=== PATIENT | male | born 1965 | race Caucasian/White ===

== ENCOUNTER 2025-05-06 18:13 | Emergency (ER) | payer OTHER, SELFPAY ==
[2025-05-06 18:43] VITALS: BP 102/67; PULSE 70; RESP 20; TEMP 37.1; O2SAT 96
--- NOTE | 2025-05-06 19:09 | PD.EDSKIN ---
ED Skin Abcess FB-RME/HPI General Chief complaint: Skin/Abscess/Foreign Body Stated complaint: Right middle finger infection Time Seen by Provider: 05/06/25 18:15 Arrival date/time: 05/06/25 18:13 This is a case of a 59-year-old male who came in in the emergency room finger pain with swelling and redness for 4 days patient states that he noticed that there is a redness swelling and yellowish discharge coming from his right third finger patient tetanus shot is up-to-date Limitations: no limitations Related Data Previous Rx's ?Medication ?Instructions ?Recorded cephalexin 500 mg tablet 500 mg PO TID #30 tabs 05/06/25 mupirocin 2 % topical ointment 1 applic topical TID #15 grams 05/06/25 sulfamethoxazole 800 1 tab PO Q12H #20 tabs 05/06/25 mg-trimethoprim 160 mg tablet (Bactrim DS) Allergies Allergy/AdvReac Type Severity Reaction Status Date / Time No Known Drug Allergies Allergy Verified 05/06/25 18:16 Review of Systems Review of Systems Systems Reviewed: All systems reviewed, normal except as documented Constitutional Constitutional: Reports system reviewed and no additional complaints, except as documented Cardiovascular Cardiovascular: Reports system reviewed and no additional complaints, except as documented Respiratory Respiratory: Reports system reviewed and no additional complaints, except as documented Gastrointestinal Gastrointestinal: Reports system reviewed and no additional complaints, except as documented Genitourinary Genitourinary: Reports system reviewed and no additional complaints, except as documented Musculoskeletal Musculoskeletal: Reports other (finger pain) Neurologic Neurologic: Reports system reviewed and no additional complaints, except as documented Past Medical History Social History SMOKING STATUS: Never smoker ED Exam General Limitations: Present no limitations General appearance: Present alert and in no apparent distress Head Head exam: Present atraumatic and normocephalic Eye Eye exam: Present normal appearance, PERRL and EOMI ENT ENT exam: Present normal exam, normal oropharynx and mucous membranes moist Neck Neck exam: Present normal inspection, full ROM and trachea midline Chest Chest inspection: Present normal inspection and symmetric chest wall rise Respiratory Respiratory exam: Present normal lung sounds bilaterally; Absent respiratory distress, wheezes, stridor, accessory muscle use or prolonged expiratory phase Cardiovascular Cardiovascular exam: Present regular rate, normal rhythm and normal heart sounds Abdominal Exam Abdominal exam: Present soft and normal bowel sounds Extremities Exam Extremities exam: Present normal inspection and full ROM Back Exam Back exam: Present normal inspection and full ROM Neurological Exam Neurological exam: Present alert, oriented X3, CN II-XII intact, normal gait and reflexes normal; Absent motor sensory deficit Psychiatric Psychiatric exam: Present normal affect and normal mood Skin Skin exam: Present warm, dry, intact, normal color and other (Noted a tenderness and swelling on the distal third finger right hand with redness yellow wrist discharge with fluctuance and nonindurated suggestive of abscess no cellulitis noted ROM intact neurovascular) Course Quality Measures none Orders Category Date Time Status cefTRIAXone [Rocephin] 1,000 mg Med 05/06/25 19:06 Ordered Lidocaine 1% 20 ml [Xylocaine 1% 20 ML] 2.1 ml IM X1 Vital Signs Vital signs: Vital Signs Temperature 98.8 F 05/06/25 18:43 Pulse Rate 70 05/06/25 18:43 Respiratory Rate 20 05/06/25 18:43 Blood Pressure 102/67 05/06/25 18:43 Pulse Oximetry (%) 96 05/06/25 18:43 Oxygen Delivery Method Room Air 05/06/25 18:43 Oxygen saturation 96% in room air PROCEDURES: Abscess I/D Site: other (Third finger right hand) Side (if applicable): right Technique: incised with #11 blade and other Amount of fluid expressed (mL): 1 Irrigation: Yes Packing used?: none Complications: other (None) Skin / Abscess / Foreign Body MDM Narrative MDM Narrative:: This is a case of a 59-year-old male who came in in the emergency room due to pain on the finger with redness swelling for 4 days physical examination patient is awake alert oriented not in distress nontoxic looking patient is not febrile not tachycardic not tachypneic not hypoxic patient noted to have a moderate tenderness swelling on the distal third finger with fluctuance suggestive of abscess no cellulitis incision and drainage by poking the abscess with gauge 20 needle was performed patient tolerated well the procedure procedure done via [place] protocol and via sterile technique abscess was completely removed patient was given ceftriaxone IM here per patient request patient was discharged with cephalexin and Bactrim for abscess patient will follow-up with PCP in 2 days for reevaluation and wound check and for any worsening symptoms he will return in the emergency room immediately or call 911 Patient was discharged with comfortable condition walking with stable gait. Patient verbalized no further complains explained diagnosis and answered patient question. Patient is comfortable with the proposed management plan including the need to follow up with his/her primary care physician and any specialist if applicable Discussed patient for any urgent condition or worsening sx, He/She needed to go to emergency room immediately or call 911. Patient acknowledge the responsibility to follow up as instructed and to monitor her/his symptoms. For any persistence of the symptoms for more than 3-5 days return precaution advised. Discussed the result of the test and was given printed discharge instruction Patient data External records reviewed:: [facility] previous records Clinical information provided by:: patient Social determinants that could affect healthcare access:: none Patient has the following chronic illnesses:: None How is presenting disease/condition affected by chronic disease/condition?: no chronic disease Evaluation data The following diagnostics were reviewed and interpreted by me:: other (specify) (None) Lab and/or radiology exams considered but not ordered:: None Interpretation Summary: None Medications / Prescriptions Medications or Prescriptions considered but not ordered:: Given Medication administrations:: Medication Administration History Ceftriaxone Sodium 1,000 mg/ (Lidocaine HCl 2.1 ml) 0 mg IM X1 ONE Stop: 05/06/25 19:07 Given Consultations Consultation(s) initiated? (list below): No Diagnosis Skin/Abscess Differential Diagnosis: abscess of skin or subcutaneous tissue and cellulitis Most likely diagnosis given after review of the tests above:: Finger abscess Admission Indicated Admission indicated?: not indicated Explain why admission is indicated or not indicated:: Not indicated Admission Request Was there a request for admission?: No Admission Attestation Admission request attestation: Not indicated Disposition Plan Disposition Plan: Discharge Discharge Attestation Discharge Attestation: The patient and all family members were given an opportunity to ask questions and understood the discharge instructions. Discharge instructions specifically effects, indications for sooner follow up or return to the emergency department, and the expected course of current diagnosis. Patient condition: Stable Discharge Plan Plan Patient Disposition: HOME (Self Care) Patient condition on transfer: Stable Prescriptions/Referrals Prescriptions/Med Rec: New cephalexin 500 mg tablet 500 mg PO TID Qty: 30 0RF sulfamethoxazole-trimethoprim [Bactrim DS] 800-160 mg tablet 1 tab PO Q12H Qty: 20 0RF mupirocin 2 % ointment 1 applic topical TID Qty: 15 0RF Problem List Clinical Impression: Abscess of finger Patient/Caregiver Discharge Instructions Education Materials: ED Abscess, Incision And Drainage Additional Instructions: Follow-up with your primary care physician in 2 days for reevaluation and wound check for any worsening symptoms or any emergent concerns such as redness swelling discharge by the wound pain fever chills call 911 or go to the nearest emergency room finish the course of antibiotic wound care daily is advised Print Language: [place] Stand Alone Forms: Viviane Award Info., Patient Portal Info Letter PA/MOTION STUDY ANALYST Supervising Physician PA/MOTION STUDY ANALYST Supervising Physician: dr alberto
[2025-05-06] MEDS: cefTRIAXone 1,000 MG, LIDOCAINE 1% 20 ML 2.1 ML IM (19:18)
== END 2025-05-06 19:23 | disposition home or self-care (01) ==
LOC: SERX 19:20
PROVIDERS: Emergency Provider Emergency Medicine
DX: L02.511 Cutaneous abscess of right hand (principal)
CPT/HCPCS: 26010; 96372; 99283; J0696; J3490